=== PATIENT | female | born 1960 | race Caucasian/White ===

== ENCOUNTER 2017-03-12 16:16 | Inpatient (IN) | payer BC, MEDICAID ==
[2017-03-12] MEDS ORDERED: Enoxaparin Sodium 100 MG/ML SYRINGE ONE (17:05)
[2017-03-12 17:49] LABS: Troponin I 0.572 ng/mL (< 0.028)
[2017-03-12] MEDS ORDERED: NS 0.9% w/ 20 MEQ KCL 1,000 ML IV PRN (20:31)
[2017-03-12] MEDS ORDERED: Dextrose 5% in Water 1,000 ML IV PRN (20:31)
[2017-03-12] MEDS ORDERED: Dextrose 50% Abboject 50 ML SYRINGE SLOW IVP PRN (20:31)
[2017-03-12] MEDS ORDERED: Sodium Chloride 0.9% 1,000 ML IV SCH ×2 (20:45→22:00)
[2017-03-12] MEDS ORDERED: HumaLOG 300 UNITS/3 ML VIAL SC PRN (20:49)
[2017-03-12] MEDS ORDERED: Insulin Detemir 100 UNITS/ML 15 UNITS in Pre-Filled Syringe 1 EACH SC SCH (21:00)
[2017-03-12] MEDS ORDERED: Ondansetron HCl/PF 4 MG/2 ML Vial IVP PRN (21:16)
[2017-03-12] MEDS ORDERED: Ondansetron ODT 4 MG TAB SL PRN (21:16)
[2017-03-12 21:27] VITALS: BMI 48.5
[2017-03-12] MEDS ORDERED: traMADol HCl 50 MG TAB PO PRN (21:29)
[2017-03-12] MEDS ORDERED: Zolpidem Tartrate 5 MG TAB PO PRN (21:32)
[2017-03-12 21:34] LABS: Critical Call Chem Troponin I RESULT DECREASING; Troponin I 0.462 ng/mL (< 0.028)
[2017-03-12 22:26] LABS: Hemoglobin A1c 9.6 % (4.0-6.0)
[2017-03-12] MEDS: Carvedilol 6.25 MG TAB PO SCH (22:35)
[2017-03-12 22:37] LABS: Magnesium 1.7 mg/dL (1.6-2.6)
[2017-03-12 22:38] LABS: Anion Gap 15 mmol/L (10-20); BUN (Urea Nitrogen) 24 mg/dL (9.8-20.1); Calc. Creatinine Clearance 136 mL/min (70-130); Calcium 8.8 mg/dL (7.8-10.44); Carbon Dioxide 23 mmol/L (22-29); Chloride 99 mmol/L (98-107); Estimated GFR-MDRD 71; Glucose 312 mg/dL (70-105); Potassium 3.3 mmol/L (3.5-5.1); Sodium 134 mmol/L (136-145)
[2017-03-12] MEDS: Nitroglycerin 0.4 MG TAB (25 Tab Bottle) PO PRN ×2 (22:39→23:00)
[2017-03-12 22:54] LABS: Actual Bicarbonate (HCO3a) 24.1 mEq/L (22-26); Base Excess (BEa) 0.4 mEq/L (0 (+/-) 2.5); CO2 Tension 35.8 mmHg (35.0-45.0); Calcium, Ionized 1.1 mmol/L (1.12-1.30); Hemoglobin (Hb) 13.3 g/dL (12.0-16.0); O2 Tension (PaO2) 83.4 mmHg (80.0-100.0); pH, Arterial 7.45 (7.35-7.45)
[2017-03-12 22:55] LABS: Critical Call Chem Troponin I RESULT DECREASING; Troponin I 0.393 ng/mL (< 0.028)
[2017-03-12 22:56] LABS: Puncture Site RRA
[2017-03-12 23:22] LABS: Bilirubin Small (Negative); Blood, Urine Large (Negative); Clarity TURBID (Clear); Glucose, Urine (Dipstick) >=1000 mg/dL (Negative); Leukocyte Small (Negative); Nitrite Negative (Negative); Protein, Urine (Dipstick) 100 mg/dL (Neg-Trace); Specific Gravity, Urine 1.031 (1.002-1.036)
[2017-03-12 23:23] LABS: Bacteria/HPF 4+ HPF (None Seen); Squamous Epithelial 0-3 HPF (0-3); WBC/HPF 21-50 HPF (0-3)
[2017-03-12 23:25] LABS: Pathc Cast-AUWi Flag 2.99 (0-2.49)
[2017-03-12 23:39] LABS: Legionella Urinary Ag Negative (Negative)
[2017-03-13] MEDS ORDERED: Ketorolac Tromethamine 30 MG/ML VIAL IVP SCH (00:01)
[2017-03-13] MEDS: NS 0.9% w/ 20 MEQ KCL 1,000 ML/1,000 ML BAG IV SCH ×3 (00:12→08:09)
[2017-03-13] MEDS ORDERED: cefTRIAXone\\ROCEPHIN 2 GM VIAL IM SCH (00:30)
[2017-03-13] MEDS ORDERED: CEFTRIAXONE ROCEPHIN IM SCH (00:45)
[2017-03-13] MEDS ORDERED: PRE FILLED IM SCH (00:45)
[2017-03-13 02:36] LABS: Anion Gap 13 mmol/L (10-20); BUN (Urea Nitrogen) 28 mg/dL (9.8-20.1); Calc. Creatinine Clearance 126 mL/min (70-130); Calcium 8.8 mg/dL (7.8-10.44); Carbon Dioxide 25 mmol/L (22-29); Chloride 97 mmol/L (98-107); Estimated GFR-MDRD 65; Glucose 329 mg/dL (70-105); Potassium 3.3 mmol/L (3.5-5.1); Sodium 132 mmol/L (136-145)
[2017-03-13] MEDS ORDERED: cefTRIAXone\\ROCEPHIN 2 GM in Sodium Chloride 0.9% 100 ML IVPB SCH (03:30)
--- NOTE | 2017-03-13 06:06 | PDOC.FM ---
- Subjective Subjective: Feeling better this morning but overall weak and tired. Chest pain resolved. Improved with nitro. Troponins downtrending. EKG stable. - Objective MAR Reviewed: Yes Vital Signs & Weight: Vital Signs (12 hours) Temp Pulse Resp BP BP Pulse Ox 03/13/17 04:00 98.5 F 116 H 20 126/74 95 03/13/17 03:00 111 H 20 106/66 95 03/13/17 01:00 123 H 20 167/78 H 97 03/13/17 00:29 99.5 F 122 H 22 H 158/91 H 96 03/13/17 00:06 91 L 03/12/17 23:32 99.0 F 104 H 20 161/93 H 98 03/12/17 22:57 97 03/12/17 22:35 146/91 H 03/12/17 20:28 99.0 F 104 H 20 140/89 95 Weight Weight 112.718 kg I&O: 03/11/17 03/12/17 03/13/17 06:59 06:59 06:59 Intake Total 450 Output Total 1400 Balance -950 Result Diagrams: 03/13/17 05:50 03/13/17 08:53 EKG Reviewed by me: Yes <Ann Marie Baires - Last Filed: 03/13/17 11:08> - Objective Vital Signs & Weight: Vital Signs (12 hours) Temp Pulse Resp BP BP Pulse Ox 03/13/17 19:45 98.7 F 118 H 20 137/77 93 L 03/13/17 15:05 99.7 F H 106 H 20 147/83 H 96 03/13/17 11:25 98.9 F 112 H 24 H 137/74 95 03/13/17 11:00 97.6 F 112 H 20 137/74 93 L Weight Weight 112.718 kg I&O: 03/12/17 03/13/17 03/14/17 06:59 06:59 06:59 Intake Total 2150 3970 Output Total 1550 Balance 600 3970 Result Diagrams: 03/13/17 05:50 03/13/17 08:53 <Ketan Etienne - Last Filed: 03/13/17 21:04> Phys Exam - Physical Examination Constitutional: NAD HEENT: moist MMs, sclera anicteric clammy skin Respiratory: no wheezing, clear to auscultation bilateral Cardiovascular: RRR, no significant murmur intermittently tachycardic Gastrointestinal: soft, non-tender, no distention, positive bowel sounds Musculoskeletal: no edema, pulses present Neurological: non-focal, moves all 4 limbs Psychiatric: normal affect, A&O x 3 Skin: no rash, cap refill <2 seconds <Ann Marie Baires - Last Filed: 03/13/17 11:08> Dx/Plan (1) NSTEMI (non-ST elevated myocardial infarction) Code(s): I21.4 - NON-ST ELEVATION (NSTEMI) MYOCARDIAL INFARCTION Status: Acute (2) Diabetes Code(s): E11.9 - TYPE 2 DIABETES MELLITUS WITHOUT COMPLICATIONS Status: Acute (3) HTN (hypertension) Code(s): I10 - ESSENTIAL (PRIMARY) HYPERTENSION Status: Acute (4) HLD (hyperlipidemia) Code(s): E78.5 - HYPERLIPIDEMIA, UNSPECIFIED Status: Acute (5) Acute cystitis Code(s): N30.00 - ACUTE CYSTITIS WITHOUT HEMATURIA Status: Acute (6) Sepsis Code(s): A41.9 - SEPSIS, UNSPECIFIED ORGANISM Status: Acute - Plan Plan: 1. NSTEMI - Troponins downtrending - Pain atypical but relieved with nitro - On therapeutic lovenox - LBBB stable from old EKG - Appreciate Dr. Dickerson' assistance - NPO - Strong family history of CAD 2. Sepsis 2/2 UTI - Difficulty getting line - Midline IV started overnight - s/p Rocephin, continue x3-5 days - Will check CXR - BCx, UCx pending 3. URI - Flu negative OP and here but started on tamiflu, will complete course - CXR pending 4. Hypokalemia - Repleting IV 5. DM2 - ABG WNL - Weight based dose insulin started and aggressive SSI - NPO currently 6. HTN - Home meds PPX: Therapeutic lovenox <Ann Marie Baires - Last Filed: 03/13/17 11:08> Attending Addendum - Attending Addendum I personally evaluated the patient and discussed the management with Dr. Baires. I agree with and repeated the History, Examination, Assessment and Plan documented above with any addition or exceptions noted below. PCI unremarkable. RF management postoperatively. Consider TTE postoperatively. Leukocytosis with h/o flu and c/f postflu PNA. Rocephin per pulm, will add MRSA coverage if any worsening. Hypnatremia stable likely 2/2 above, trend. Lantus + SA. Goal 140-180 while in house. DVT/gi ppx. <Ketan Etienne - Last Filed: 03/13/17 21:04>
[2017-03-13 06:31] LABS: Anion Gap 15 mmol/L (10-20); BUN (Urea Nitrogen) 28 mg/dL (9.8-20.1); Calc. Creatinine Clearance 122 mL/min (70-130); Calcium 8.5 mg/dL (7.8-10.44); Carbon Dioxide 23 mmol/L (22-29); Chloride 97 mmol/L (98-107); Cholesterol 86 mg/dl (< 200 Desired); Estimated GFR-MDRD 63; Glucose 311 mg/dL (70-105); HDL Cholesterol Less than 8 mg/dL (>60 Neg Risk); Potassium 3.3 mmol/L (3.5-5.1); Sodium 132 mmol/L (136-145); Triglycerides 181 mg/dL (Less than 150)
[2017-03-13 06:34] LABS: Band 21 % (5-11); Cardiac Risk TEST NOT PERFORMED (Less than 4.5); Hemoglobin 12.2 g/dL (12.0-16.0); Lymphocytes 8 % (21-51); MDiff Complete? YES; Mean Corpuscular HGB CONC 32.8 g/dL (32.0-36.0); Mean Corpuscular Hemoglobin 29.1 pg (27.0-31.0); Mean Corpuscular Volume 88.8 fl (81.0-99.0); Mean Platelet Volume 9.2 fL (7.4-10.4); Metamyelocyte 2 % (0-0); Monocytes 3 % (0-10); Myelocyte 1 % (0-0); Neutrophil 64 % (42-75); PLT Morphology Comment Appears Decreased; Platelet Count 108 thou/uL (130-400); RBC Distribution Width 12.3 % (11.5-14.5); Reactive Lymphocytes 1 % (0-10); White Blood Cell (WBC) Count 28.3 thou/uL (4.8-10.8)
--- NOTE | 2017-03-13 07:26 | HP-2 ---
DATE OF ADMISSION: 03/12/2017 DATE OF SERVICE: 03/13/2017 CODE STATUS: FULL. PRIMARY CARE PHYSICIAN: Dr. Jones PRIMARY CARE PHYSICIAN: Dr. Emily Anna RESIDENT: Dr. Rizwana Moreno HISTORIAN: Patient. CHIEF COMPLAINT: Weakness/shortness of breath. HISTORY OF PRESENT ILLNESS: This is a 56-year-old female with a past medical history of type 2 diabetes, hypertension, hyperlipidemia and family history of MIs, presents with generalized weakness and flu-like illness for the past several days. The patient states that she started feeling bad on Thursday. She says that she had a cough that was productive with congestion as well as diffuse body aches. She states that she went to her primary care doctor. She was tested for the flu which was negative, but she does endorse being exposed to coworkers that did have the flu. She also describes chest pain that she says it is worse when she leans forward. It is also worse when she coughs. It is diffuse, achy and worse with movement and she endorses that it feels like muscle aches and pains. ER: The patient was transferred from an outside ER where she received 2 liters normal saline with 40 mEq of KCl, 10 units of NovoLog, 325 mg of aspirin, 100 mg of fentanyl. PAST MEDICAL HISTORY: 1. Type 2 diabetes. 2. Hypertension. 3. Obesity. PAST SURGICAL HISTORY: 1. Humeral fracture repair. 2. . ALLERGIES: No known drug allergies. MEDICATIONS: 1. Metformin 500 mg b.i.d. 2. Lisinopril/HCTZ 20/25 daily. 3. Simvastatin 20 mg daily. 4. Cyclobenzaprine 10 mg p.o. daily. 5. NovoLog 70/30 80 units b.i.d. 6. Carvedilol 6.25 mg b.i.d. 7. Tramadol 50 mg q.6h. p.r.n. 8. Lyrica 150 mg 3 times a daily. 9. Glimepiride 4 mg b.i.d. 10. Ibuprofen 800 mg t.i.d. SOCIAL HISTORY: Denies tobacco, alcohol and drug use. FAMILY HISTORY: Father had an KY at the age of 42. Brother has had 2 strokes and an KY and sister has had a stent placed. REVIEW OF SYSTEMS: GENERAL: Endorses fevers and chills. HEENT: Denies nasal congestion, vision changes, rhinorrhea, sore throat. RESPIRATORY: Endorses a wet cough. Endorses shortness of breath and congestion. CARDIOVASCULAR: Endorses chest pain, palpitations. GI: Denies nausea, endorses vomiting. GENITOURINARY: Denies incontinence or dysuria. SKIN: Denies rashes or lesions. MUSCULOSKELETAL: Denies pain, tenderness. NEUROLOGIC: Endorses weakness. Denies numbness or syncope. Endorses dizziness , lightheadedness. States that the room is spinning, endorses a headache. PSYCHIATRIC: Denies anxiety and depression. PHYSICAL EXAMINATION: VITAL SIGNS: Blood pressure 110/68, pulse of 94-111, respiratory rate 19-24, T- max 100.5, pulse ox 97% on 2 liters. Current weight 104 kilograms. GENERAL: Alert and oriented x4, no apparent distress, well-developed, obese, and appropriately interactive. EYES: PERRLA, EOMI. Conjunctivae within normal limits. Nasal mucosa and oropharynx within normal limits. NECK: Supple, no lymphadenopathy. CARDIAC: Regular rate and rhythm. No murmurs, rubs or gallops, 1+, pedal pulses bilaterally. RESPIRATORY: Normal effort, no retractions, clear to auscultation bilaterally. ABDOMEN: Soft, nontender. Hypoactive bowel sounds. EXTREMITIES: No clubbing, no cyanosis, no edema. MUSCULOSKELETAL: Structure within normal limits. NEUROLOGIC: No focal deficits. GCS of 15. PSYCHIATRIC: Appropriate. LABORATORY DATA: 1. CBC: 19.7, 13.1, 40.8, 128. 2. CMP: 132, 3.0, 94, 24, 21, 0.82, 61. 3. GFR 72. 4. AST, ALT, alkaline phosphatase 33, 23, 135. 5. Calcium, total protein, albumin, 0.7, 7.5, 3.0. 6. Total bilirubin 0.9. 7. Lactic acidosis 2.6, blood glucose 266. Beta hydroxybutyrate 258. 8. Troponin 0.743, 0.572, beta hydroxybutyrate 0.79. 9. Flu negative. EKG: Normal sinus rhythm at 97 with a left bundle branch block that is not new. No ST segment elevation. Anion gap of 14. ASSESSMENT AND PLAN: A 56-year-old female with past medical history of diabetes , hypertension and 1 week history of flu-like illness with shortness of breath and 2 elevated troponins, was admitted for acute coronary syndrome, probable non -ST-segment elevation myocardial infarction, hyperglycemia with uncontrolled diabetes and systemic inflammatory response syndrome criteria, unknown source. 1. Acute coronary syndrome, suspected [id number] elevation myocardial infarction. The patient was admitted to inpatient telemetry. We will trend her troponins. She was placed on therapeutic Lovenox. We will call Cardiology for a consult. Repeat an EKG if the chest pain returns, she is not having any typical chest pain. No ST segment elevations were evident on EKG. 2. Hyperglycemia with uncontrolled diabetes. We will check a hemoglobin A1c. We will also provide Accu-Cheks a.c. and at bedtime, sliding scale insulin. We also started the patient on insulin regimen that was a weight-based of 15 units of Levemir at night and 5 units of NovoLog before each meal. We will recheck a hemoglobin A1c. The patient initially had an elevated anion gap and a positive beta hydroxybutyrate with a blood sugar of 361, we ordered a VBG; however, the patient was really hard to stick and so then ordered an ABG and the patient was found to have a normal pH. We started the patient on a high rate of fluids with 20 of KCl added to it. We will serially check BMPs every 4 hours and make sure that the patient gets her night dose of insulin. We will monitor for the closing of her gap and recheck a beta hydroxybutyrate as well as recheck a lactic acid. She had a hemoglobin A1c of 11 in October in our clinic. We will recheck hemoglobin A1c. 3. Hypertension, controlled. We will resume her home medications. 4. Systemic inflammatory response syndrome criteria, unknown source, probable viral. We ordered a UA and culture as well as respiratory viral panel and a legionella urine. The patient presents like she has the flu, but was tested negative in the clinic. She says she did not get her flu shot this year. We started the patient on normal saline at 180 mL an hour. She also has in the lactic acidosis and so we will recheck that in 4-6 hours. We will also order an ABG to evaluate her acid base status. 5. DVT prophylaxis. The patient was placed on therapeutic Lovenox for non-ST- segment elevation myocardial infarction. 6. Lactic acidosis secondary to infection versus dehydration. We will recheck a lactic acid and continue NS @ 180 ml/hr DISPOSITION/LENGTH OF HOSPITAL STAY: 2-3 days. Symptomatic medications will be provided. The history and physical exam as well as management was discussed with Dr. Anna. KATYA
--- NOTE | 2017-03-13 07:53 | RAD ---
PORTABLE SEMIUPRIGHT FRONTAL CHEST RADIOGRAPH: DATE: 03/13/17. COMPARISON: 03/12/17. HISTORY: Sepsis, hypoxia. FINDINGS: There is stable prominence of the cardiac silhouette. There is postoperative hardware within the pro ximal right humerus. There is no pneumothorax, pleural fluid, focal consolidation, or alveolar edema . IMPRESSION: No acute findings. POS: YAZMIN
[2017-03-13] MEDS: Carvedilol 6.25 MG TAB PO SCH ×2 (08:07→21:04)
[2017-03-13] MEDS: HumaLOG 300 UNITS/3 ML VIAL SC SCH ×3 (08:07→17:01)
[2017-03-13] MEDS: Oseltamivir 75 MG CAP PO SCH ×2 (08:07→21:04)
[2017-03-13] MEDS ORDERED: Iopamidol 370 76% 100 ML VIAL ONE (08:08)
[2017-03-13] MEDS: Lisinopril/Hydrochlorothiazide 20/25 mg Tablet PO SCH (08:08)
[2017-03-13] MEDS ORDERED: Enoxaparin Sodium 120 MG/0.8 ML SYRINGE SC SCH (09:00)
[2017-03-13] MEDS ORDERED: Aspirin 325 MG TAB PO SCH (09:00)
[2017-03-13 09:23] LABS: Anion Gap 15 mmol/L (10-20); BUN (Urea Nitrogen) 30 mg/dL (9.8-20.1); Calc. Creatinine Clearance 107 mL/min (70-130); Calcium 8.6 mg/dL (7.8-10.44); Carbon Dioxide 23 mmol/L (22-29); Chloride 95 mmol/L (98-107); Estimated GFR-MDRD 54; Glucose 313 mg/dL (70-105); Potassium 3.8 mmol/L (3.5-5.1); Sodium 129 mmol/L (136-145)
[2017-03-13] MEDS ORDERED: Heparin 10,000 UNITS/1 ML VIAL ONE (11:23)
[2017-03-13] MEDS ORDERED: Nitroglycerin 100MG/250ML BOT 250 ML ONE (11:23)
[2017-03-13] MEDS: Cefepime 1 GM, Admixture Fee 1 EACH in Sterile Water 10 ML SLOW IVP SCH (11:28)
[2017-03-13] MEDS ORDERED: Verapamil 5 MG/2 ML VIAL ONE (11:30)
[2017-03-13] MEDS ORDERED: Communication Order-Pharmacy FS SCH (11:45)
[2017-03-13] MEDS ORDERED: Sodium Chloride 0.9% 1,000 ML IV SCH (11:45)
--- NOTE | 2017-03-13 11:51 | CON ---
DATE OF CONSULTATION: 03/13/2017 REASON FOR CONSULTATION: Elevated troponin and chest pain. HISTORY OF PRESENT ILLNESS: Ms. Altman is a 56-year-old woman with a history of diabetes, hypertensi on, hyperlipidemia who recently presented with chest pressure. The pressure was in the midsternal re gion. She also had left-sided pain. It was worse with cough. She has a chronic left bundle branch block. She has no previous history of underlying coronary disease. Her troponin was felt to be in t he indeterminate range. She also has had a recent URI and tested negative for flu. PAST MEDICAL HISTORY: As above including humeral fracture and . ALLERGIES: None. MEDICATIONS: Lisinopril/hydrochlorothiazide, Zocor, cyclobenzaprine, NovoLog, carvedilol, tramadol, glyburide, ibuprofen, metformin. FAMILY HISTORY: Positive for CAD with father having an DE at the age of 42 and brother having 2 stro kes and DE. REVIEW OF SYSTEMS: Ten point review of systems is reviewed and is as above, otherwise negative. PHYSICAL EXAMINATION: GENERAL: She is obese. VITAL SIGNS: Blood pressure 137/74, pulse 99, respirations 20. NEUROLOGIC: The patient is alert and oriented times 3 with no focal neurologic deficits. HEENT: Sclerae without icterus. Mouth has moist mucous membranes with normal pallor. NECK: No JVD. Carotid upstroke brisk. No bruits bilaterally. LUNGS: Clear to auscultation with unlabored respirations. BACK: No scoliosis or kyphosis. CARDIAC: Regular rate and rhythm with normal S1 and S2. No S3 or S4 noted. No significant rubs, murmurs, thrills, or gallops noted throughout the precordium. PMI is not displaced. There is no parasternal heave. ABDOMEN: Soft, nontender, nondistended. No peritoneal signs present. No hepatosplenomegaly. No abnormal striae. EXTREMITIES: 2+ femoral and 2+ dorsalis pedis pulses. No cyanosis, clubbing, or edema. SKIN: No gross abnormalities. PERTINENT LABORATORY DATA AND IMAGING DATA: Hemoglobin 12.2, creatinine 1.06, sodium 129, triglyceri gema 181, troponin 0.572. EKG shows left bundle branch block. IMPRESSION: 1. Chest pressure. 2. Elevated troponin. 3. Left bundle branch block. 4. Recent upper respiratory infection. RECOMMENDATIONS: It is difficult to say whether the patient's symptoms are due to unstable angina ve rsus recent URI with demand ischemia. She has had a previous left bundle branch block. Given her ri sk factors, family history, elevated troponin and left bundle branch block, would recommend coronary angiography with possible PCI. I discussed the procedure in full detail with Ms. Altman. The risks included but not limited to the following: , stroke, DE, need for emergency surgery, loss of limb, bleeding, and infection, as well as a re action to the dye causing kidney failure and needing long-term dialysis. Other risks include acute s tent thrombosis and restenosis, vessel dissection, perforation, need for emergency surgery in additio n to distal embolization causing chronic foot discomfort as well as amputation. All questions were a nswered. I have discussed drug-coated versus nondrug coated stent placement. There are no contraind ications and will proceed if needed. Further recommendations depending on the above.
[2017-03-13] MEDS ORDERED: Fentanyl 100 MCG/2 ML VIAL ONE (12:23)
[2017-03-13] MEDS ORDERED: Midazolam HCl 2 mg/2 ml Vial ONE (12:24)
[2017-03-13] MEDS ORDERED: Acetaminophen/Codeine 30-300mg Tablet PO PRN (12:41)
[2017-03-13] MEDS ORDERED: Nitroglycerin 0.4 MG TAB (25 Tab Bottle) SL PRN (12:41)
[2017-03-13] MEDS ORDERED: traMADol HCl 50 MG TAB PO PRN (12:41)
[2017-03-13] MEDS ORDERED: Sodium Chloride 0.9% 200 ML IV SCH (12:45)
[2017-03-13] MEDS: Sodium Chloride 0.9% 1,000 ML IV SCH ×2 (12:52→20:37)
--- NOTE | 2017-03-13 15:29 | CON ---
DATE OF CONSULTATION: 03/13/2017 REASON FOR CONSULTATION: MICU, sepsis. HISTORY OF PRESENT ILLNESS: A 56-year-old obese female from [place] who presented with co ugh, shortness of breath, congestion and body aches. Flu was negative. She was started on Tamiflu because of coworkers, apparently had the flu-like symptoms. She then was found to have elevated troponin. CK-MB was elevated at 453. Her troponin was 0.93 and 0.46. She is denying any chest pain. She is restless. She is immunocompromised. SOCIAL HISTORY: Nonsmoker. No alcohol. PAST MEDICAL HISTORY: Diabetes and hypertension, chronic. PAST SURGICAL HISTORY: Included and fractured hernia. MEDICATIONS: Ibuprofen 800, Amaryl one twice a day, metformin 1250 twice a day, Coreg one tablet twi ce a day, tramadol, simvastatin 20, lisinopril and insulin 18 units. REVIEW OF SYSTEMS: Otherwise, 10-point negative. PHYSICAL EXAMINATION: VITAL SIGNS: Blood pressure 118/76, sats are 94% on 4 liters and temperature 98. CHEST: With decreased breath sounds. No wheezing. CARDIAC: Normal S1 and S2. No gallops. ABDOMEN: Soft. LABORATORY DATA: White count of 28,000, hemoglobin and hematocrit 12 and 37, platelet count 108 low, 64 segs, 21 bands, 2 metamyelocytes, 1 myelocyte and 8 lymphocytes. Creatinine is normal, BUN 30, a nd sodium 126. IMAGING DATA: Chest x-ray shows cardiomegaly, questionable left retrocardiac density. IMPRESSION: 1. Elevated troponin, rule out coronary artery disease. 2. Obesity with diabetes. 3. Hypertension. 4. Marked leukocytosis with marked left shift. I doubt this is due to influenza. PLAN: We will consider reinitiating broad-spectrum antibiotics until cultures are back. May continu e Tamiflu as prescribed. Supportive care. We will follow while in the MICU.
[2017-03-13] MEDS: Ketorolac Tromethamine 30 MG/ML VIAL IVP PRN (19:55)
[2017-03-13] MEDS ORDERED: Ondansetron HCl/PF 4 MG/2 ML Vial IVP PRN (20:06)
[2017-03-13] MEDS: Insulin Detemir 100 UNITS/ML 15 UNITS in Pre-Filled Syringe 1 EACH SC SCH (20:39)
[2017-03-13] MEDS: Acetaminophen/Codeine 30-300mg Tablet PO PRN (20:42)
[2017-03-13] MEDS ORDERED: Cefepime 1 GM in Sodium Chloride 0.9% 100 ML IVPB SCH (21:00)
--- NOTE | 2017-03-13 23:25 | PDOC.EVN ---
Event Note - Event Note Event Note: Paged by Nursing staff at approximately 2000 hours to inform residents patient was tachycardic in the 120s to 130s. Reviewed telemetry which showed sinus tachycardia vs a-flutter. 12 lead EKG was ordered which was inconclusive for sinus tachycardia vs. A-flutter. Was given IV diltiazem 20 mg which lowered heart rate into 90s. Repeat EKG showed SR with PVCs. Rate in upper 90s. Will continue current treatment at this time. Sinus tachycardia likely due to acute illness. Will consider fluid bolus if sinus tachycardia returns. Case discussed with Dr. Etienne who was in agreement.
[2017-03-14] MEDS: Cefepime 1 GM, Admixture Fee 1 EACH in Sterile Water 10 ML SLOW IVP SCH ×2 (00:06→11:00)
[2017-03-14] MEDS ORDERED: Sodium Chloride 0.9% 500 ML IV SCH (01:15)
[2017-03-14] MEDS: Acetaminophen 325 MG TAB PO PRN (02:42)
[2017-03-14] MEDS: Piperacillin/Tazobactam 3.375 GM in Sodium Chloride 0.9% 100 ML IVPB SCH ×3 (05:12→18:56)
[2017-03-14] MEDS: HumaLOG 300 UNITS/3 ML VIAL SC SCH ×3 (05:22→17:25)
--- NOTE | 2017-03-14 07:12 | PDOC.FM ---
- Subjective Subjective: Patient reports that she is feeling better this AM. Denies any chest pain, SOB, palpitations, N/V, dysuria, rhinorrhea. - Objective MAR Reviewed: Yes Vital Signs & Weight: Vital Signs (12 hours) Temp Pulse Resp BP BP Pulse Ox 03/14/17 04:44 100 03/14/17 03:59 98.4 F 85 18 125/80 100 03/14/17 00:15 96 03/13/17 23:59 98.4 F 96 18 101/57 L 96 03/13/17 21:20 98.9 F 107 H 28 H 96 03/13/17 21:04 150/83 H 03/13/17 20:50 108 H 32 H 142/77 H 95 03/13/17 20:02 99.7 F H 126 H 32 H 164/94 H 93 L 03/13/17 19:55 98.9 F 107 H 28 H 95 03/13/17 19:45 98.7 F 118 H 20 137/77 93 L Weight Weight 112.718 kg I&O: 03/13/17 03/14/17 03/15/17 06:59 06:59 06:59 Intake Total 2150 6543 Output Total 1550 550 Balance 600 5993 Result Diagrams: 03/13/17 05:50 03/13/17 08:53 <Alis Newell - Last Filed: 03/14/17 07:13> - Objective Vital Signs & Weight: Vital Signs (12 hours) Temp Pulse Resp BP BP Pulse Ox 03/14/17 15:58 98.5 F 97 18 139/85 93 L 03/14/17 11:48 99.2 F 104 H 16 128/90 100 03/14/17 09:44 97 03/14/17 09:09 96 03/14/17 09:08 150/83 H 03/14/17 08:00 98.6 F 96 26 H 96 03/14/17 07:22 98.6 F 96 16 129/71 97 Weight Weight 112.718 kg I&O: 03/13/17 03/14/17 03/15/17 06:59 06:59 06:59 Intake Total 2150 6543 900 Output Total 1550 550 Balance 600 5993 900 Result Diagrams: 03/14/17 07:20 03/14/17 09:43 <Ketan Etienne - Last Filed: 03/14/17 17:00> Phys Exam - Physical Examination Constitutional: NAD HEENT: moist MMs Respiratory: no wheezing, no rales, no rhonchi, clear to auscultation bilateral Cardiovascular: RRR, no significant murmur, no rub Gastrointestinal: soft, non-tender, no distention, positive bowel sounds Musculoskeletal: no edema, pulses present Neurological: non-focal, moves all 4 limbs Psychiatric: normal affect, A&O x 3 <Alis Newell - Last Filed: 03/14/17 07:13> Dx/Plan (1) Sepsis Code(s): A41.9 - SEPSIS, UNSPECIFIED ORGANISM Status: Acute QualifierTitle: Sepsis type: sepsis due to unspecified organism Qualified Code(s): A41.9 - Sepsis, unspecified organism Plan: Patient presented in sepsis and was found to have UTI, but urine cx was negative due to being drawn after abx were started, and bacteremia with gram negative coccobacilli She has been tachycardic overnight, but otherwise stable. -Cefepime day 2, Zosyn day 1, s/p Rocephin -NS @ 125 -Bcx final results with sensitivities (2) Bacteremia due to Gram-negative bacteria Code(s): R78.81 - BACTEREMIA Status: Acute Plan: gram negative coccobacilli in 2/2 cx She has been tachycardic overnight, but otherwise stable. -Cefepime day 2, Zosyn day 1, s/p Rocephin -NS @ 125 -Bcx final results with sensitivities (3) Demand ischemia Code(s): I24.8 - OTHER FORMS OF ACUTE ISCHEMIC HEART DISEASE Status: Acute Plan: Trop elevated initially to 0.7, have since downtrended s/p cath on 03/13 that showed insignificant CAD Patient asymptomatic currently -Dr. Dickerson with Cardiology has been consulted, appreciate recs (4) URI (upper respiratory infection) Code(s): J06.9 - ACUTE UPPER RESPIRATORY INFECTION, UNSPECIFIED Status: Acute QualifierTitle: URI type: unspecified viral URI Qualified Code(s): J06.9 - Acute upper respiratory infection, unspecified; B97.89 - Other viral agents as the cause of diseases classified elsewhere; B97.89 - Other viral agents as the cause of diseases classified elsewhere Plan: Patient has been treated with tamiflu for suspected influenza infection due to exposure, although her flu test was negative -continue course of tamiflu -droplet precautions (5) Acute cystitis Code(s): N30.00 - ACUTE CYSTITIS WITHOUT HEMATURIA Status: Acute QualifierTitle: Hematuria presence: without hematuria Qualified Code(s): N30.00 - Acute cystitis without hematuria Plan: Acute cystitis with unknown bacteria -Will cover with cefepime -NS @ 125 (6) HTN (hypertension) Code(s): I10 - ESSENTIAL (PRIMARY) HYPERTENSION Status: Acute QualifierTitle: Hypertension type: essential hypertension Qualified Code( s): I10 - Essential (primary) hypertension Plan: Cont home meds (7) Diabetes Code(s): E11.9 - TYPE 2 DIABETES MELLITUS WITHOUT COMPLICATIONS Status: Acute QualifierTitle: Diabetes mellitus type: type 2 Diabetes mellitus complication status: with unspecified complications Diabetes mellitus exterminator helper insulin use: with exterminator helper use Qualified Code(s): E11.8 - Type 2 diabetes mellitus with unspecified complications; Z79.4 - senior living (current) use of insulin; Z79.4 - senior living (current) use of insulin; 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 Estrada and Osiris. I agree with and repeated the History, Examination, Assessment and Plan documented above with any addition or exceptions noted below. Negative cath yesterday. No cp this morning, is just tired and wanting to go home. Exam relatively unremarkable Sepsis 2/2 respiratory vs urine source with GN CB in BC x 2, with thrombocytopenia, improving leukocytosis and clinical picture. Await cultures, continue broad spectrum coverage. NSTEMI likely 2/2 sepsis with negative cath. Will order TTE, may have sepsis induced cardiac dysfunction. DM. Increase control today. Heart healthy, low CHO diet. GI and DVT ppx. <Ketan Etienne - Last Filed: 03/14/17 17:00>
[2017-03-14 08:03] LABS: Band 4 % (5-11); Hemoglobin 12.7 g/dL (12.0-16.0); Lymphocytes 7 % (21-51); MDiff Complete? YES; Mean Corpuscular HGB CONC 32.4 g/dL (32.0-36.0); Mean Corpuscular Hemoglobin 28.7 pg (27.0-31.0); Mean Corpuscular Volume 88.6 fl (81.0-99.0); Mean Platelet Volume 10.9 fL (7.4-10.4); Metamyelocyte 1 % (0-0); Monocytes 1 % (0-10); Neutrophil 87 % (42-75); PLT Morphology Comment Appears Decreased; Platelet Count 107 thou/uL (130-400); RBC Distribution Width 12.8 % (11.5-14.5); Red Blood Cell (RBC) Count 4.42 mill/uL (4.20-5.40); White Blood Cell (WBC) Count 20.1 thou/uL (4.8-10.8)
[2017-03-14] MEDS: Carvedilol 6.25 MG TAB PO SCH ×3 (09:08→21:13)
[2017-03-14] MEDS: Enoxaparin Sodium 40 MG/0.4 ML SYRINGE SC SCH (09:09)
[2017-03-14] MEDS: Lisinopril/Hydrochlorothiazide 20/25 mg Tablet PO SCH (09:09)
[2017-03-14] MEDS: Insulin Detemir 100 UNITS/ML 15 UNITS in Pre-Filled Syringe 1 EACH SC SCH (09:09)
[2017-03-14] MEDS: Sodium Chloride 0.9% 1,000 ML IV SCH ×2 (09:38→18:56)
[2017-03-14 10:06] LABS: Anion Gap 14 mmol/L (10-20); BUN (Urea Nitrogen) 26 mg/dL (9.8-20.1); Calc. Creatinine Clearance 155 mL/min (70-130); Calcium 8.9 mg/dL (7.8-10.44); Carbon Dioxide 21 mmol/L (22-29); Chloride 100 mmol/L (98-107); Estimated GFR-MDRD 83; Glucose 283 mg/dL (70-105); Potassium 4.3 mmol/L (3.5-5.1); Sodium 131 mmol/L (136-145)
[2017-03-14] MEDS: Ketorolac Tromethamine 30 MG/ML VIAL IVP PRN (12:02)
--- NOTE | 2017-03-14 13:11 | PRG ---
DATE OF SERVICE: 03/14/2017 SUBJECTIVE: Awake, alert, responsive, appears to be less short of breath. OBJECTIVE: VITAL SIGNS: Blood pressure is 150/83, temperature 98, saturations 97 on 3 liters, pulse was still e levated yesterday, now is better at 96. CHEST: Chest reveals decreased breath sounds, no wheezing. CARDIAC: Normal S1, S2. No gallops. ABDOMEN: Soft. No masses. LABORATORY: White count 20,000, H&H 12 and 39, platelet count is 173. Electrolytes are normal. Cul tures are negative. IMPRESSION: Febrile illness, marked leukocytosis with left shift. PLAN: Continue broad-spectrum antibiotics. If cultures come back negative, we will deescalate.
[2017-03-14] MEDS: Acetaminophen/Codeine 30-300mg Tablet PO PRN (21:13)
[2017-03-14] MEDS: Atorvastatin Calcium 40 MG TAB PO SCH (21:13)
[2017-03-14] MEDS: Insulin Detemir 100 UNITS/ML 30 UNITS in Pre-Filled Syringe 1 EACH SC SCH (21:14)
[2017-03-15] MEDS: Cefepime 1 GM, Admixture Fee 1 EACH in Sterile Water 10 ML SLOW IVP SCH ×2 (00:43→11:30)
[2017-03-15] MEDS: Piperacillin/Tazobactam 3.375 GM in Sodium Chloride 0.9% 100 ML IVPB SCH ×3 (00:43→11:59)
[2017-03-15] MEDS: Sodium Chloride 0.9% 1,000 ML IV SCH ×2 (04:54→07:39)
[2017-03-15 05:16] LABS: Anion Gap 12 mmol/L (10-20); BUN (Urea Nitrogen) 17 mg/dL (9.8-20.1); Calc. Creatinine Clearance 174 mL/min (70-130); Calcium 8.4 mg/dL (7.8-10.44); Carbon Dioxide 26 mmol/L (22-29); Chloride 96 mmol/L (98-107); Estimated GFR-MDRD Greater than 90; Glucose 187 mg/dL (70-105); Potassium 3.2 mmol/L (3.5-5.1); Sodium 131 mmol/L (136-145)
[2017-03-15 05:29] LABS: Band 12 % (5-11); Hemoglobin 12.3 g/dL (12.0-16.0); Lymphocytes 9 % (21-51); MDiff Complete? YES; Mean Corpuscular HGB CONC 32.5 g/dL (32.0-36.0); Mean Corpuscular Hemoglobin 28.9 pg (27.0-31.0); Mean Corpuscular Volume 88.7 fl (81.0-99.0); Mean Platelet Volume 10.3 fL (7.4-10.4); Monocytes 4 % (0-10); Neutrophil 75 % (42-75); PLT Morphology Comment Appears Adequate; Platelet Count 143 thou/uL (130-400); RBC Distribution Width 12.6 % (11.5-14.5); RBC Morphology Normal; Red Blood Cell (RBC) Count 4.27 mill/uL (4.20-5.40); White Blood Cell (WBC) Count 17.5 thou/uL (4.8-10.8)
[2017-03-15] MEDS ORDERED: Potassium Chloride 20 MEQ TAB PO SCH (06:00)
[2017-03-15] MEDS: Acetaminophen/Codeine 30-300mg Tablet PO PRN ×2 (07:14→17:22)
--- NOTE | 2017-03-15 07:19 | PDOC.FM ---
- Subjective Subjective: The patient reports that she is not feeling well this AM. She gets coughing fits. She reports that her breathing is doing fine. Denies body aches, chest pain. Reports that she is eating well. She has not been ambulating much. - Objective MAR Reviewed: Yes Vital Signs & Weight: Vital Signs (12 hours) Temp Pulse Resp BP BP Pulse Ox 03/15/17 07:14 98.4 F 101 H 19 161/73 H 98 03/15/17 03:53 97.9 F 93 20 146/71 H 93 L 03/14/17 23:52 98.3 F 88 18 137/78 97 03/14/17 21:13 143/84 H 03/14/17 19:51 99.7 F H 99 22 H 143/84 H 100 03/14/17 19:50 99.7 F H 99 22 H 100 Weight Weight 123.831 kg I&O: 03/14/17 03/15/17 03/16/17 06:59 06:59 06:59 Intake Total 6543 900 Output Total 550 1100 Balance 5993 -200 Result Diagrams: 03/15/17 04:42 03/15/17 04:42 <Alis Newell - Last Filed: 03/15/17 07:17> - Objective Vital Signs & Weight: Vital Signs (12 hours) Temp Pulse Resp BP BP Pulse Ox 03/15/17 08:27 91 132/53 L 03/15/17 08:25 98.1 F 91 18 97 03/15/17 07:14 98.4 F 101 H 19 161/73 H 98 03/15/17 03:53 97.9 F 93 20 146/71 H 93 L Weight Weight 123.831 kg I&O: 03/14/17 03/15/17 03/16/17 06:59 06:59 06:59 Intake Total 6543 2900 Output Total 550 2600 300 Balance 5993 300 -300 Result Diagrams: 03/15/17 04:42 03/15/17 04:42 <Ketan Etienne - Last Filed: 03/15/17 12:12> Phys Exam - Physical Examination Constitutional: NAD HEENT: moist MMs Respiratory: no rales, no rhonchi, wheezing present Cardiovascular: RRR, no significant murmur, no rub Gastrointestinal: soft, non-tender, no distention, positive bowel sounds Musculoskeletal: pulses present, edema present (1+ pitting edema) Neurological: non-focal, moves all 4 limbs Psychiatric: normal affect, A&O x 3 <Alis Newell - Last Filed: 03/15/17 07:17> Dx/Plan (1) Sepsis Code(s): A41.9 - SEPSIS, UNSPECIFIED ORGANISM Status: Acute QualifierTitle: Sepsis type: sepsis due to unspecified organism Qualified Code(s): A41.9 - Sepsis, unspecified organism Plan: Patient presented in sepsis and was found to have UTI, urine culture grew E. coli and patient also had bacteremia with gram negative coccobacilli, still pending specific organism s/p fluid resuscitation, is now stabilized -Cefepime day 3, Zosyn day 2, s/p Rocephin -Bcx final results with sensitivities (2) Bacteremia due to Gram-negative bacteria Code(s): R78.81 - BACTEREMIA Status: Acute Plan: gram negative coccobacilli in 2/2 cx . -Cefepime day 3, Zosyn day 2, s/p Rocephin -Bcx final results with sensitivities (3) Demand ischemia Code(s): I24.8 - OTHER FORMS OF ACUTE ISCHEMIC HEART DISEASE Status: Acute Plan: NSTEMI likely 2/2 demand ischemia from sepsis. Trop elevated initially to 0.7, have since downtrended s/p cath on 03/13 that showed insignificant CAD Patient asymptomatic currently -Dr. Dickerson with Cardiology has been consulted, appreciate recs -started patient on atorvastatin (4) URI (upper respiratory infection) Code(s): J06.9 - ACUTE UPPER RESPIRATORY INFECTION, UNSPECIFIED Status: Acute QualifierTitle: URI type: unspecified viral URI Qualified Code(s): J06.9 - Acute upper respiratory infection, unspecified; B97.89 - Other viral agents as the cause of diseases classified elsewhere; B97.89 - Other viral agents as the cause of diseases classified elsewhere Plan: Patient has been treated with tamiflu for suspected influenza infection due to exposure, although her flu test was negative -Tamiflu course completed -symptomatic treatment (5) Acute cystitis Code(s): N30.00 - ACUTE CYSTITIS WITHOUT HEMATURIA Status: Acute QualifierTitle: Hematuria presence: without hematuria Qualified Code(s): N30.00 - Acute cystitis without hematuria Plan: Acute cystitis 2/2 E. coli -Will cover with cefepime (6) HTN (hypertension) Code(s): I10 - ESSENTIAL (PRIMARY) HYPERTENSION Status: Acute QualifierTitle: Hypertension type: essential hypertension Qualified Code( s): I10 - Essential (primary) hypertension Plan: Cont home meds (7) Diabetes Code(s): E11.9 - TYPE 2 DIABETES MELLITUS WITHOUT COMPLICATIONS Status: Acute QualifierTitle: Diabetes mellitus type: type 2 Diabetes mellitus complication status: with unspecified complications Diabetes mellitus security systems engineer insulin use: with security systems engineer use Qualified Code(s): E11.8 - Type 2 diabetes mellitus with unspecified complications; Z79.4 - MCC (current) use of insulin; Z79.4 - operator (current) use of insulin; Z79.4 - M[facility] ( current) use of insulin; Z79.4 - MCC (current) use of insulin Plan: Levemir -SSI -Accuchecks (8) Hypokalemia Code(s): E87.6 - HYPOKALEMIA Status: Acute Plan: Will replete and monitor (9) CHF (congestive heart failure) Code(s): I50.9 - HEART FAILURE, UNSPECIFIED Status: Acute QualifierTitle: Congestive heart failure type: combined Congestive heart failure chronicity: unspecified congestive heart failure chronicity Qualified Code(s): I50.40 - Unspecified combined systolic (congestive) and diastolic ( congestive) heart failure Plan: CHF, EF 30-35%, diastolic component continue ACEi, BB -fluid restrict -strict I/O's -daily weights <Alis Newell - Last Filed: 03/15/17 07:17> Attending Addendum - Attending Addendum I personally evaluated the patient and discussed the management with Dr. Newell. I agree with and repeated the History, Examination, Assessment and Plan documented above with any addition or exceptions noted below. Severe sepsis with NSTEMI and acute hypoxic resp failure, improving, continue antimicrobials and await outside culture results. Risk factor management for NSTEMI. Improving glycemic control. PT/OT and d/c FC as soon as able. New dx of heart failure and will place on appropriate meds, appreciate cards input. DVT/gi ppx. <Ketan Etienne - Last Filed: 03/15/17 12:12>
[2017-03-15] MEDS: Carvedilol 6.25 MG TAB PO SCH ×3 (08:27→20:51)
[2017-03-15] MEDS: Lisinopril/Hydrochlorothiazide 20/25 mg Tablet PO SCH (08:27)
[2017-03-15] MEDS: Enoxaparin Sodium 40 MG/0.4 ML SYRINGE SC SCH (08:28)
[2017-03-15] MEDS: Insulin Detemir 100 UNITS/ML 30 UNITS in Pre-Filled Syringe 1 EACH SC SCH ×2 (09:10→20:51)
[2017-03-15] MEDS: HumaLOG 300 UNITS/3 ML VIAL SC SCH ×3 (09:10→18:58)
--- NOTE | 2017-03-15 15:15 | PRG ---
DATE OF SERVICE: 03/15/2017 SUBJECTIVE: Ms. Altman is doing well. She feels much better today. OBJECTIVE: VITAL SIGNS: Blood pressure 132/53, pulse 91, temperature 98.1. LUNGS: Clear to rhonchi, rales bilaterally. CARDIAC: Regular rate and rhythm. ABDOMEN: Soft, nontender, nondistended. EXTREMITIES: No edema. IMPRESSION: 1. Nonischemic cardiomyopathy. 2. Recent viral infection. RECOMMENDATIONS: 1. LifeVest. 2. Continue to aspirin, atorvastatin and carvedilol in addition to NITESH inhibitor therapy. 3. Respiratory support.
--- NOTE | 2017-03-15 19:11 | PRG ---
DATE OF SERVICE: 03/15/2017 SUBJECTIVE: Her EF was 35%. Today, she is feeling better. She appear to be less encephalopathic. OBJECTIVE: VITAL SIGNS: Blood pressure 130/53, sats 97%, temperature 98. I's and O's have been good, 2900 in a nd 2600 out. CHEST: Chest reveals bilateral crackles. CARDIAC: Normal S1, S2. LABORATORY DATA: White count is down to 70,000, H and H 12 and 37, platelet count is 143. She has g ot a big left shift with 12 bands. Electrolytes are normal. Urine is growing E. coli. IMPRESSION: Sepsis, urinary tract infection, cardiomyopathy, diabetes, and morbid obesity. I may consider discontinuing the Zosyn at this stage. Continue Maxipime, PT and supportive care, car diac care as per Cardiology. We will follow.
[2017-03-15] MEDS: Atorvastatin Calcium 40 MG TAB PO SCH (20:51)
[2017-03-16] MEDS: Cefepime 1 GM, Admixture Fee 1 EACH in Sterile Water 10 ML SLOW IVP SCH (00:48)
[2017-03-16] MEDS: Acetaminophen/Codeine 30-300mg Tablet PO PRN ×2 (03:49→10:53)
[2017-03-16 04:52] LABS: #Basophils 0.1 thou/uL (0.0-0.2); #Eosinphils 0.1 thou/uL (0.0-0.7); #Lymphocytes 2.3 thou/uL (1.20-3.40); #Monocytes 1.2 thou/uL (0.11-0.59); #Neutrophils 12.1 thou/uL (1.40-6.50); %Basophils 0.4 % (0.0-1.0); %Eosinophils 0.5 % (0.0-10.0); %Lymphocytes 14.7 % (21.0-51.0); %Monocytes 7.6 % (0.0-10.0); %Neutrophils 76.8 % (42.0-75.0); Hemoglobin 12.1 g/dL (12.0-16.0); Mean Corpuscular Hemoglobin 29.2 pg (27.0-31.0); Mean Corpuscular Volume 88.3 fl (81.0-99.0); Mean Platelet Volume 9.1 fL (7.4-10.4); Platelet Count 201 thou/uL (130-400); RBC Distribution Width 12.5 % (11.5-14.5); Red Blood Cell (RBC) Count 4.15 mill/uL (4.20-5.40); White Blood Cell (WBC) Count 15.8 thou/uL (4.8-10.8)
[2017-03-16 05:08] LABS: Anion Gap 11 mmol/L (10-20); BUN (Urea Nitrogen) 11 mg/dL (9.8-20.1); Calc. Creatinine Clearance 235 mL/min (70-130); Calcium 8.2 mg/dL (7.8-10.44); Carbon Dioxide 30 mmol/L (22-29); Chloride 93 mmol/L (98-107); Estimated GFR-MDRD Greater than 90; Glucose 122 mg/dL (70-105); Sodium 131 mmol/L (136-145)
[2017-03-16 05:13] LABS: Potassium 2.6 mmol/L (3.5-5.1)
[2017-03-16] MEDS ORDERED: Potassium Chloride 20 MEQ TAB PO SCH ×2 (05:30→14:00)
--- NOTE | 2017-03-16 08:48 | CON ---
DATE OF SERVICE: 03/16/2017 SUBJECTIVE: Ms. Altman continues to improve. She states she is breathing better. Her ambulation is also improving, although slow. PHYSICAL EXAMINATION: VITAL SIGNS: Blood pressure 143/82, pulse 98, temperature 98.6. LUNGS: Decreased rhonchi, rales bilaterally. HEART: Regular rate and rhythm. ABDOMEN: Soft, nontender, nondistended. EXTREMITIES: No edema. PERTINENT LABORATORY DATA: White blood cell count 15.8. IMPRESSION: 1. Nonischemic cardiomyopathy. 2. Viral illness. RECOMMENDATIONS: LifeVest has been placed. She is currently on beta chucky therapy, NITESH inhibitor therapy in addition to hydrochlorothiazide. Heart rate and blood pressure appears stable. We will i ncrease Coreg to 12.5 one p.o. b.i.d. Would recommend continued titration of beta chucky therapy an d NITESH inhibitor therapy as an outpatient.
--- NOTE | 2017-03-16 09:09 | PDOC.FM ---
- Subjective Subjective: pt reports she is feeling better this am. Denies sob, cough. Does complain of some left sided neck/shoulder pain that has been going on for quite some time according to her. It is worse with shoulder movement and tender to palpation, non radiating and not associated with sob, chest pressure, diaphoresis. Otherwise she states she is hoping to go home today. Additionally reports rt sided ear pressure and whooshing sound. - Objective Vital Signs & Weight: Vital Signs (12 hours) Temp Pulse Resp BP Pulse Ox 03/16/17 04:00 98.6 F 98 18 143/82 H 95 Weight Weight 119.431 kg I&O: 03/15/17 03/16/17 03/17/17 06:59 06:59 06:59 Intake Total 2900 1130 Output Total 2600 1900 Balance 300 -770 Result Diagrams: 03/16/17 04:26 03/16/17 04:26 <Moe Shah - Last Filed: 03/16/17 09:08> - Objective Vital Signs & Weight: Vital Signs (12 hours) Temp Pulse Pulse Pulse Resp BP BP 03/16/17 11:02 98.7 F 91 18 03/16/17 10:57 98 03/16/17 10:50 98.7 F 91 18 03/16/17 09:50 87 97 164/93 H 170/101 H 03/16/17 09:08 84 87 142/84 H 168/99 H 03/16/17 04:00 98.6 F 98 18 BP BP Pulse Ox 03/16/17 11:02 140/73 97 03/16/17 10:57 03/16/17 10:50 96 03/16/17 09:50 03/16/17 09:08 03/16/17 04:00 143/82 H 95 Weight Weight 119.431 kg I&O: 03/15/17 03/16/17 03/17/17 06:59 06:59 06:59 Intake Total 2900 1130 Output Total 2600 1900 Balance 300 -770 Result Diagrams: 03/16/17 04:26 03/16/17 04:26 <Roselia Jesus - Last Filed: 03/16/17 14:08> Phys Exam - Physical Examination Constitutional: NAD HEENT: PERRLA, moist MMs, sclera anicteric Respiratory: no wheezing, no rales, no rhonchi, clear to auscultation bilateral Cardiovascular: RRR, no significant murmur, no rub Gastrointestinal: soft, non-tender, no distention, positive bowel sounds Musculoskeletal: pulses present, edema present ttp left trap/supraclavicular Neurological: non-focal, moves all 4 limbs <Moe Shah - Last Filed: 03/16/17 09:08> Dx/Plan (1) Otitis Code(s): H66.90 - OTITIS MEDIA, UNSPECIFIED, UNSPECIFIED EAR Status: Acute QualifierTitle: Laterality: right Qualified Code(s): H66.91 - Otitis media, unspecified, right ear (2) Bacteremia due to Gram-negative bacteria Code(s): R78.81 - BACTEREMIA Status: Acute (3) CHF (congestive heart failure) Code(s): I50.9 - HEART FAILURE, UNSPECIFIED Status: Acute QualifierTitle: Congestive heart failure type: combined Congestive heart failure chronicity: unspecified congestive heart failure chronicity Qualified Code(s): I50.40 - Unspecified combined systolic (congestive) and diastolic ( congestive) heart failure (4) Demand ischemia Code(s): I24.8 - OTHER FORMS OF ACUTE ISCHEMIC HEART DISEASE Status: Acute (5) Diabetes Code(s): E11.9 - TYPE 2 DIABETES MELLITUS WITHOUT COMPLICATIONS Status: Acute QualifierTitle: Diabetes mellitus type: type 2 Diabetes mellitus complication status: with unspecified complications Diabetes mellitus long term care administrator insulin use: with snf use Qualified Code(s): E11.8 - Type 2 diabetes mellitus with unspecified complications; Z79.4 - long term care administrator (current) use of insulin; Z79.4 - long term care administrator (current) use of insulin; Z79.4 - penitentiary ( current) use of insulin; Z79.4 - long term care administrator (current) use of insulin (6) HTN (hypertension) Code(s): I10 - ESSENTIAL (PRIMARY) HYPERTENSION Status: Acute QualifierTitle: Hypertension type: essential hypertension Qualified Code( s): I10 - Essential (primary) hypertension (7) Hypokalemia Code(s): E87.6 - HYPOKALEMIA Status: Acute (8) Hyponatremia Code(s): E87.1 - HYPO-OSMOLALITY AND HYPONATREMIA Status: Acute (9) Sepsis secondary to UTI Code(s): A41.9 - SEPSIS, UNSPECIFIED ORGANISM; N39.0 - URINARY TRACT INFECTION, SITE NOT SPECIFIED Status: Acute - Plan Plan: pts blood cx has grown h flu X2 from outside facility, likely covered by cefepime, will continue abx severe hypokalemia, pt asymptomatic, no ekg changes appreciated, replace w 80mg K+, 40mg given this am continue current hf meds, life vest placed per cards recs, op titration of failure meds cards consulted, apprecaite recs uti being treated with cefepime, E coli sensitive to cefepime DM: continue current medications, accuchecks <Moe Shah - Last Filed: 03/16/17 09:08> Attending Addendum - Attending Addendum I personally evaluated the patient and discussed the management with Dr. Shah I agree with the History, Examination, Assessment and Plan documented above with any addition or exceptions noted below- Patient feeling better; denies any SOB/CP. Afebrile VSS. A/P: 1) Sepsis secondary to H. flu- blood cultures from [place] (+) 2/2. Continue Cefepime; await sensitivities to change to po abx. 2 ) Nonischemic cardiomyopathy- appreciate cardiology assistance; stephanieandrzej has lifevest; continue to titrate meds as tolerated. 3) DM- stable; continue to titrate meds. 4) hypokalemia- receiving replacement; continue to monitor. <Roselia Jesus - Last Filed: 03/16/17 14:08>
[2017-03-16] MEDS: Carvedilol 6.25 MG TAB PO SCH ×2 (10:54→20:32)
[2017-03-16] MEDS: Enoxaparin Sodium 40 MG/0.4 ML SYRINGE SC SCH (10:55)
[2017-03-16] MEDS: Insulin Detemir 100 UNITS/ML 30 UNITS in Pre-Filled Syringe 1 EACH SC SCH ×2 (10:56→21:24)
[2017-03-16] MEDS: Lisinopril/Hydrochlorothiazide 20/25 mg Tablet PO SCH (10:57)
[2017-03-16] MEDS: HumaLOG 300 UNITS/3 ML VIAL SC SCH ×3 (10:58→17:28)
--- NOTE | 2017-03-16 16:51 | PRG ---
DATE OF SERVICE: 03/16/2017 She looks better. She is less short of breath. PHYSICAL EXAMINATION: VITAL SIGNS: Blood pressure is 143/82, O2 sat 100%, temperature 98, respirations 18. CHEST: Chest revealed decreased breath sounds without any wheezing. CARDIAC: Normal S1-S2. No gallops. ABDOMEN: Soft, no masses. LABORATORY: White count 15,000, H&H is 12 and 36. Electrolytes are normal. is 2.6. IMPRESSION: 1. Escherichia coli urinary tract infection. 2. Cardiomyopathy. 3. Respiratory failure. PLAN: At this stage I would suggest deescalating antibiotics, put on oral antibiotics. Cardiac care per Cardiology. I will follow.
[2017-03-16] MEDS: Atorvastatin Calcium 40 MG TAB PO SCH (20:33)
[2017-03-17] MEDS: Acetaminophen/Codeine 30-300mg Tablet PO PRN (02:12)
[2017-03-17 05:19] LABS: #Basophils 0.1 thou/uL (0.0-0.2); #Eosinphils 0.2 thou/uL (0.0-0.7); #Lymphocytes 2.2 thou/uL (1.20-3.40); #Monocytes 1.2 thou/uL (0.11-0.59); %Basophils 0.5 % (0.0-1.0); %Eosinophils 0.9 % (0.0-10.0); %Lymphocytes 11.7 % (21.0-51.0); %Monocytes 6.6 % (0.0-10.0); %Neutrophils 80.3 % (42.0-75.0); Hemoglobin 12.1 g/dL (12.0-16.0); Mean Corpuscular HGB CONC 33.2 g/dL (32.0-36.0); Mean Corpuscular Hemoglobin 29.3 pg (27.0-31.0); Mean Corpuscular Volume 88.2 fl (81.0-99.0); Mean Platelet Volume 8.4 fL (7.4-10.4); Platelet Count 263 thou/uL (130-400); RBC Distribution Width 12.6 % (11.5-14.5); Red Blood Cell (RBC) Count 4.15 mill/uL (4.20-5.40); White Blood Cell (WBC) Count 18.7 thou/uL (4.8-10.8)
[2017-03-17 05:50] LABS: Anion Gap 13 mmol/L (10-20); BUN (Urea Nitrogen) 8 mg/dL (9.8-20.1); Calc. Creatinine Clearance 243 mL/min (70-130); Calcium 8.4 mg/dL (7.8-10.44); Carbon Dioxide 31 mmol/L (22-29); Chloride 93 mmol/L (98-107); Estimated GFR-MDRD Greater than 90; Glucose 111 mg/dL (70-105); Sodium 134 mmol/L (136-145)
[2017-03-17 05:57] LABS: Potassium 2.5 mmol/L (3.5-5.1)
[2017-03-17] MEDS ORDERED: Potassium Chloride 20 MEQ TAB PO SCH ×5 (06:30→17:00)
[2017-03-17] MEDS ORDERED: Magnesium Oxide 400 MG TAB PO SCH (06:30)
[2017-03-17] MEDS: Carvedilol 6.25 MG TAB PO SCH (08:30)
[2017-03-17] MEDS: Lisinopril/Hydrochlorothiazide 20/25 mg Tablet PO SCH (08:31)
[2017-03-17] MEDS: Insulin Detemir 100 UNITS/ML 30 UNITS in Pre-Filled Syringe 1 EACH SC SCH (08:33)
[2017-03-17] MEDS: Enoxaparin Sodium 40 MG/0.4 ML SYRINGE SC SCH (08:33)
[2017-03-17] MEDS: HumaLOG 300 UNITS/3 ML VIAL SC SCH ×3 (08:34→18:45)
--- NOTE | 2017-03-17 09:32 | PDOC.FM ---
- Subjective Subjective: Pt reports she is feeling well, only complaint is left ear fullness. Will attempt washout today. Otherwise no cp, sob, nvdc, fever, chills, increased swelling or palpitations. She wishes to go home, however has repeatedly low potassium, will replace and redraw this afternoon. May require scheduled potassium, discussed with pt who is agreeable. - Objective Vital Signs & Weight: Vital Signs (12 hours) Temp Pulse Resp BP BP Pulse Ox 03/17/17 08:31 84 03/17/17 08:25 98.1 F 84 20 143/79 H 99 03/17/17 04:00 98.1 F 80 18 129/61 93 L 03/17/17 00:00 98.1 F 80 18 128/56 L 93 L Weight Weight 118.705 kg I&O: 03/16/17 03/17/17 03/18/17 06:59 06:59 06:59 Intake Total 1130 830 Output Total 1900 1924 Balance -770 -3420 Result Diagrams: 03/17/17 04:47 03/17/17 04:47 <Moe Shah - Last Filed: 03/17/17 09:30> - Objective Vital Signs & Weight: Vital Signs (12 hours) Temp Pulse Resp BP BP Pulse Ox 03/17/17 11:12 99.2 F 85 18 139/83 99 03/17/17 08:31 84 03/17/17 08:25 98.1 F 84 20 143/79 H 99 03/17/17 04:00 98.1 F 80 18 129/61 93 L 03/17/17 00:00 98.1 F 80 18 128/56 L 93 L Weight Weight 118.705 kg I&O: 03/16/17 03/17/17 03/18/17 06:59 06:59 06:59 Intake Total 1130 830 Output Total 1900 1924 Balance -770 -9015 Result Diagrams: 03/17/17 04:47 03/17/17 04:47 <Roselia Jesus - Last Filed: 03/17/17 11:45> Phys Exam - Physical Examination Constitutional: NAD HEENT: PERRLA, moist MMs, sclera anicteric Neck: no nodes, no JVD Respiratory: no wheezing, no rales, no rhonchi, clear to auscultation bilateral Cardiovascular: RRR, no significant murmur, no rub Gastrointestinal: soft, non-tender, no distention, positive bowel sounds Musculoskeletal: pulses present, edema present trace Neurological: non-focal, moves all 4 limbs Psychiatric: normal affect <Moe Shah - Last Filed: 03/17/17 09:30> Dx/Plan (1) Otitis Code(s): H66.90 - OTITIS MEDIA, UNSPECIFIED, UNSPECIFIED EAR Status: Acute QualifierTitle: Laterality: right Qualified Code(s): H66.91 - Otitis media, unspecified, right ear Plan: on levaquin, continue 5 day course (2) Bacteremia due to Gram-negative bacteria Code(s): R78.81 - BACTEREMIA Status: Acute Plan: 2/2 e coli and h flu, continue levaquin and complete 5 day course, pt afebrile (3) CHF (congestive heart failure) Code(s): I50.9 - HEART FAILURE, UNSPECIFIED Status: Acute QualifierTitle: Congestive heart failure type: combined Congestive heart failure chronicity: unspecified congestive heart failure chronicity Qualified Code(s): I50.40 - Unspecified combined systolic (congestive) and diastolic ( congestive) heart failure Plan: cards consulted, appreciate recs life vest in place (4) Demand ischemia Code(s): I24.8 - OTHER FORMS OF ACUTE ISCHEMIC HEART DISEASE Status: Acute (5) Diabetes Code(s): E11.9 - TYPE 2 DIABETES MELLITUS WITHOUT COMPLICATIONS Status: Acute QualifierTitle: Diabetes mellitus type: type 2 Diabetes mellitus complication status: with unspecified complications Diabetes mellitus terminal operator insulin use: with alf use Qualified Code(s): E11.8 - Type 2 diabetes mellitus with unspecified complications; Z79.4 - terminal operator (current) use of insulin; Z79.4 - terminal operator (current) use of insulin; Z79.4 - terminal operator ( current) use of insulin; Z79.4 - terminal operator (current) use of insulin (6) HTN (hypertension) Code(s): I10 - ESSENTIAL (PRIMARY) HYPERTENSION Status: Acute QualifierTitle: Hypertension type: essential hypertension Qualified Code( s): I10 - Essential (primary) hypertension (7) Hypokalemia Code(s): E87.6 - HYPOKALEMIA Status: Acute (8) Hyponatremia Code(s): E87.1 - HYPO-OSMOLALITY AND HYPONATREMIA Status: Acute (9) Sepsis secondary to UTI Code(s): A41.9 - SEPSIS, UNSPECIFIED ORGANISM; N39.0 - URINARY TRACT INFECTION, SITE NOT SPECIFIED Status: Resolved - Plan Plan: continue htn and dm current medications, well controlled replace potassium and recheck afternoon BMP, replace mag <Moe Shah - Last Filed: 03/17/17 09:30> Attending Addendum - Attending Addendum I personally evaluated the patient and discussed the management with Dr. Shah I agree with the History, Examination, Assessment and Plan documented above with any addition or exceptions noted below- Patient sitting up in chair. Denies SOB, cough. Afebrile VSS. A/P: 1) Sepsis secondary to H. flu-change to po antibiotics; will need 2 weeks of abx due to bacteremia. 2) Newly diagnosed combined CHF- on carvedilol and NITESH; continue lifevest and follow-up with cardiology as outpatient, 3) Probable ELISEO- will need follow-up with pulmonary and outpatient sleep study. 4) Hypokalemia- continue replacement; if improved plan to d/c home later today. <Roselia Jesus - Last Filed: 03/17/17 11:45>
[2017-03-17] MEDS ORDERED: Magnesium Chloride 64 MG TAB PO SCH (10:30)
[2017-03-17] MEDS: Acetaminophen 325 MG TAB PO PRN (11:48)
--- NOTE | 2017-03-17 12:02 | PRG ---
DATE OF SERVICE: 03/17/2017 This morning, she is better, less short of breath. She is going to be discharged home with a LifeVes t. PHYSICAL EXAMINATION: VITAL SIGNS: Blood pressure 140/79, sats 99% on room air, temperature is 98. CHEST: Decreased breath sounds, no wheezing. CARDIAC: Normal S1-S2. No gallops. ABDOMEN: Soft. No masses. LABORATORY: White count 8000, H&H 12 and 36, platelet count is normal. Electrolytes normal, i s 2.4. IMPRESSION: 1. Congestive heart failure. 2. Morbid obesity. 3. Sleep apnea. 4. Urinary tract infection. PLAN: From a pulmonary standpoint of view discharge home on antibiotics for a total of 10 days. Car diac follow up. She needs an outpatient sleep study. I will see her in the office as needed.
--- NOTE | 2017-03-17 12:09 | PRG ---
DATE OF SERVICE: 03/17/2017 Ms. Altman is doing well. She has mild shortness of breath, but is improving slowly. She is current ly on congestive heart failure medications and a LifeVest. PHYSICAL EXAMINATION: VITAL SIGNS: Blood pressure 139/82, pulse 80, temperature 99.2. LUNGS: Clear to auscultation. HEART: Regular rate and rhythm. ABDOMEN: Soft, nontender, nondistended. EXTREMITIES: No edema. IMPRESSION: 1. Nonischemic cardiomyopathy. 2. Influenza. RECOMMENDATIONS: Continue Coreg, ARB and atorvastatin. From my standpoint if she is to stay for fur ther therapy from a lung standpoint, it would be okay to discontinue tele and transfer to medical. T he plan is to follow up with Ms. Altman as an outpatient.
[2017-03-17 15:31] LABS: Anion Gap 13 mmol/L (10-20); BUN (Urea Nitrogen) 8 mg/dL (9.8-20.1); Calc. Creatinine Clearance 217 mL/min (70-130); Calcium 8.6 mg/dL (7.8-10.44); Carbon Dioxide 32 mmol/L (22-29); Chloride 92 mmol/L (98-107); Estimated GFR-MDRD Greater than 90; Glucose 163 mg/dL (70-105); Potassium 3.1 mmol/L (3.5-5.1); Sodium 134 mmol/L (136-145)
[2017-03-17 17:43] VITALS: BP 135/85; TEMP 97.7
--- NOTE | 2017-03-18 14:39 | DIS-2 ---
DATE OF ADMISSION: 03/13/2017 DATE OF DISCHARGE: 03/17/2017 LOCATION: [place], [place]. ADMITTING ATTENDING: Ketan Etienne MD DISCHARGE ATTENDING: Roselia Jesus M.D. RESIDENT PHYSICIAN: Moe Shah DO CONSULTATIONS: 1. Cardiology, Dr. Mateo Dickerson. 2. Pulmonology, Dr. Paras Burton. PROCEDURES: 1. An echocardiogram done on 03/12/2017 showed an ejection fraction of 30-35% and flow reversal sugg estive of diastolic dysfunction. Mild mitral regurgitation was present. Mild tricuspid regurgitatio n was present. 2. Cardiac catheterization done on 03/12/2017 showed insignificant coronary artery disease. Recomme nded medical management and aggressive risk factor management. 3. Chest x-ray done on 03/13/2017 showed no acute findings. PRIMARY DIAGNOSIS: Non-ST elevation myocardial infarction. SECONDARY DIAGNOSES: 1. Bacteremia due to Haemophilus influenzae. 2. Influenza. 3. Hypertension. 4. Hyperlipidemia. 5. Diabetes. 6. Otitis. DISCHARGE MEDICATIONS: 1. Aspirin 81 mg daily. 2. Atorvastatin 40 mg p.o. at bedtime. 3. Coreg 12.5 mg p.o. b.i.d. 4. Cyclobenzaprine 10 mg 1 tab p.o. q.8 hours. 5. Glimepiride 1 tab p.o. b.i.d. 4 mg tab. 6. Ibuprofen 800 mg p.o. t.i.d. 7. NovoLog 70/30, 18 units subcu b.i.d. with meals. 8. Lantus 80 units subcu b.i.d. 9. Levaquin 500 mg p.o. daily. 10. Lisinopril/hydrochlorothiazide 20/25 mg p.o. daily. 11. Metformin 500 mg p.o. b.i.d. 12. Potassium chloride 10 mEq p.o. b.i.d. 13. Tramadol 50 mg p.o. q.i.d. 14. Ambien 1 tab p.o. at bedtime. DISCONTINUED MEDICATIONS: None. HISTORY OF PRESENT ILLNESS/HOSPITAL COURSE: The patient is a 56-year-old female who came in with a c hief complaint of viral URI type symptoms in addition to chest pain. On presentation in the ER, the patient's initial troponin was found to be 0.572 but subsequently, down trended to 0.393. The patien t was taken to the [facility] and found to have insignificant coronary artery disease with recommended aggressive medical management and risk factor reduction. Additionally, she had an echocardiogram at that time, which showed an ejection fraction of 35%. Of note, on admission, the patient was found to be flu A positive and treated with a full course of Tamiflu. Some records were obtained from the [facility] ER where she initially presented and she was found to have positive blood cultures x2 from the outside ER, which subsequently grew H. flu. The patient was treated with a 5-day course of Levaquin in addition to prior day's treatment of vancomycin, Zosyn, and Rocephin. Of note, aside from the vir al URI-type symptoms, the only other complaint the patient offered was right ear fullness with some m inor pain and she denied any mastoid tenderness on exam. No other likely source was found as chest x -ray was negative. Overall, the patient had an uncomplicated hospital course, recovered well with ap propriate treatment and was discharged to home with appropriate followup recommended. DISCHARGE INSTRUCTIONS: 1. Location: Home. 2. Diet: Heart healthy, consistent carbohydrates, fluid restriction less than 2 liters, and salt re striction less than 2 grams. 4. Activity: Ad pawel. 5. Followup: Follow up with Dr. Burton with Pulmonology in 2-3 weeks, with the primary care provider, Dr. Vivien Jones, in 7 days, and Dr. Mateo Dickerson in 2-3 weeks.
--- NOTE | 2017-04-09 18:51 | EKG ---
Test Reason : STAT Blood Pressure : / mmHG Vent. Rate : 121 BPM Atrial Rate : 121 BPM P-R Int : 144 ms QRS Dur : 144 ms QT Int : 352 ms P-R-T Axes : 056 -37 053 degrees QTc Int : 499 ms Sinus tachycardia Left axis deviation Non-specific intra-ventricular conduction block Anterolateral infarct , age undetermined Abnormal ECG When compared with ECG of 22-FEB-2016 09:56, Vent. rate has increased BY 43 BPM Non-specific intra-ventricular conduction block has replaced Left bundle branch block Anterior infarct is now Present Anterolateral infarct is now Present Confirmed by DR. Ad ESCOBEDO ([id number]) on 04/09/2017 6:51:22 PM Referred By: Confirmed By:DR. Ad ESCOBEDO
--- NOTE | 2017-04-09 19:00 | EKG ---
Test Reason : STAT Blood Pressure : / mmHG Vent. Rate : 121 BPM Atrial Rate : 241 BPM P-R Int : 000 ms QRS Dur : 150 ms QT Int : 348 ms P-R-T Axes : 000 -60 066 degrees QTc Int : 494 ms Atrial flutter with variable A-V block with premature ventricular or aberrantly conducted complexes Left bundle branch block Abnormal ECG When compared with ECG of 13-MAR-2017 00:42, (Unconfirmed) Atrial flutter has replaced Sinus rhythm Left bundle branch block has replaced Non-specific intra-ventricular conduction block Criteria for Anterior infarct are no longer Present Criteria for Anterolateral infarct are no longer Present Confirmed by DR. Ad ESCOBEDO ([id number] on 04/09/2017 7:00:09 PM Referred By: WM Confirmed By:DR. Ad ESCOBEDO
== END 2017-03-17 19:13 | disposition home or self-care (01) | DRG 871 ==
LOC: ERS 16:16 → 2SE 17:20 → IMCU/EMU 03-13 00:54 → 2NO 03-15 09:42
PROVIDERS: ADMIT Student in an Organized Health Care Education/Training Program; ATTEND Student in an Organized Health Care Education/Training Program
PROC: 4A023N7 Measurement of Cardiac Sampling and Pressure, Left Heart, Percutaneous Approach (ICD-10-PCS; principal; 2017-03-13)
PROC: B2111ZZ Fluoroscopy of Multiple Coronary Arteries using Low Osmolar Contrast (ICD-10-PCS; 2017-03-13)
PROC: B3101ZZ Fluoroscopy of Thoracic Aorta using Low Osmolar Contrast (ICD-10-PCS; 2017-03-13)
PROC: B2151ZZ Fluoroscopy of Left Heart using Low Osmolar Contrast (ICD-10-PCS; 2017-03-13)
DX: A41.50 Gram-negative sepsis, unspecified (principal); I50.41 Acute combined systolic (congestive) and diastolic (congestive) heart failure; J96.01 Acute respiratory failure with hypoxia; I21.A1 Myocardial infarction type 2; E66.01 Morbid (severe) obesity due to excess calories; E11.65 Type 2 diabetes mellitus with hyperglycemia; D69.6 Thrombocytopenia, unspecified; E87.2 Acidosis; E87.1 Hypo-osmolality and hyponatremia; I42.9 Cardiomyopathy, unspecified; Z68.43 Body mass index [BMI] 50.0-59.9, adult; N39.0 Urinary tract infection, site not specified; I24.8 Other forms of acute ischemic heart disease; N30.00 Acute cystitis without hematuria; J11.1 Influenza due to unidentified influenza virus with other respiratory manifestations; B96.20 Unspecified Escherichia coli [E. coli] as the cause of diseases classified elsewhere; E11.9 Type 2 diabetes mellitus without complications; E78.5 Hyperlipidemia, unspecified; I44.7 Left bundle-branch block, unspecified; I25.10 Atherosclerotic heart disease of native coronary artery without angina pectoris; H66.91 Otitis media, unspecified, right ear; E87.6 Hypokalemia; G47.33 Obstructive sleep apnea (adult) (pediatric); R65.20 Severe sepsis without septic shock; Z66 Do not resuscitate
CPT/HCPCS: 36415; 36416; 71045; 80048; 80061; 81001; 82010; 82805; 83036; 83735; 84100; 85025; 87040; 87077; 87086; 87186; 87633; 87899; 93005; 93010; 93306; 93458; 93798; 94760; 96372; 99152; A4216; C1769; G8978-GP-CK; G8979-GP-CK; G8980-GP-CK; G8987-GO-CK; G8988-GO-CI; J0692; J0696; J1644; J1650; J1815; J2250; J2543; J3010; J7050

== ENCOUNTER → 2017-08-11 | Day surgery (SDC) | payer BC ==
[2017-08-10 17:03] VITALS: BMI 45.8
[~2017-08-11] MED LIST: CEFAZOLIN/Water 2 GM/20 ML SYRINGE ONE; Fentanyl 100 MCG/2 ML VIAL ONE; Iopamidol 370 76% 50 ML VIAL FS ONE; Lidocaine 1% (PF) 30 ML VIAL ONE; Lidocaine 1% PF 5 ML VIAL ONE; Midazolam HCl 2 mg/2 ml Vial ONE; PROPOFOL 200 MG/20 ML VIAL ONE; Propofol 500 MG/50 ML VIAL ONE
[2017-08-11 12:36] LABS: #Basophils 0.1 thou/uL (0.0-0.2); #Eosinphils 0.2 thou/uL (0.0-0.7); #Lymphocytes 2.4 thou/uL (1.20-3.40); #Monocytes 0.7 thou/uL (0.11-0.59); #Neutrophils 2.3 thou/uL (1.40-6.50); %Basophils 0.9 % (0.0-1.0); %Eosinophils 4.1 % (0.0-10.0); %Lymphocytes 42.8 % (21.0-51.0); %Monocytes 11.7 % (0.0-10.0); %Neutrophils 40.4 % (42.0-75.0); Hemoglobin 14.7 g/dL (12.0-16.0); Mean Corpuscular HGB CONC 33.5 g/dL (32.0-36.0); Mean Corpuscular Hemoglobin 29.2 pg (27.0-31.0); Mean Corpuscular Volume 87.2 fl (81.0-99.0); Mean Platelet Volume 7.6 fL (7.4-10.4); Platelet Count 222 thou/uL (130-400); RBC Distribution Width 12.2 % (11.5-14.5); Red Blood Cell (RBC) Count 5.04 mill/uL (4.20-5.40); White Blood Cell (WBC) Count 5.6 thou/uL (4.8-10.8)
[2017-08-11 12:43] LABS: Prothrombin Time 13.3 SEC (12.0-14.7)
[2017-08-11 12:58] LABS: Anion Gap 14 mmol/L (10-20); BUN (Urea Nitrogen) 15 mg/dL (9.8-20.1); Calc. Creatinine Clearance 139 mL/min (70-130); Calcium 9.6 mg/dL (7.8-10.44); Carbon Dioxide 23 mmol/L (22-29); Chloride 102 mmol/L (98-107); Estimated GFR-MDRD 78; Glucose 254 mg/dL (70-105); Potassium 3.6 mmol/L (3.5-5.1); Sodium 135 mmol/L (136-145)
--- NOTE | 2017-08-11 16:59 | EKG ---
Test Reason : PREOP Blood Pressure : / mmHG Vent. Rate : 099 BPM Atrial Rate : 099 BPM P-R Int : 174 ms QRS Dur : 154 ms QT Int : 410 ms P-R-T Axes : 072 -09 043 degrees QTc Int : 526 ms Normal sinus rhythm Left bundle branch block Abnormal ECG When compared with ECG of 13-MAR-2017 22:39, (Unconfirmed) Fusion complexes are no longer Present Premature ventricular complexes are no longer Present QRS axis Shifted left Confirmed by MIMI ALLEN ([id number] on 08/11/2017 4:58:40 PM Referred By: DORIAN Confirmed By:MIMI ALLEN
--- NOTE | 2017-08-11 17:48 | RAD ---
PORTABLE CHEST: 08/11/17 HISTORY: Post AICD lead placement. COMPARISON: 03/13/17 FINDINGS/IMPRESSION: AICD leads have been placed through the left subclavian vein. Leads overlie the right ventricle. Lung squires are clear. No pneumothorax. No acute lung process. POS: [facility]
== END ==
LOC: SDC 11:51
PROVIDERS: ATTEND Internal Medicine Cardiovascular Disease
PROC: 02WA3MZ Revision of Cardiac Lead in Heart, Percutaneous Approach (ICD-10-PCS; principal; 2017-08-11)
DX: T82.120A Displacement of cardiac electrode, initial encounter (principal); I25.2 Old myocardial infarction; I25.5 Ischemic cardiomyopathy; I25.10 Atherosclerotic heart disease of native coronary artery without angina pectoris; E78.00 Pure hypercholesterolemia, unspecified; E11.9 Type 2 diabetes mellitus without complications; I50.9 Heart failure, unspecified; E66.01 Morbid (severe) obesity due to excess calories; Z68.42 Body mass index [BMI] 45.0-49.9, adult; Z79.82 Long term (current) use of aspirin; Z79.4 Long term (current) use of insulin; Z79.899 Other long term (current) drug therapy
CPT/HCPCS: 33225; 33244; 36005; 36415; 36416; 71045; 75820; 80048; 85025; 85610; 85730; 93005; 93010; 93640; 93641; 96374; J2001; J2250; J2704; J3010; J3490

== ENCOUNTER 2017-10-24 10:53 | Emergency (ER) | payer BC, MEDICAID ==
--- NOTE | 2017-10-24 13:15 | RAD ---
LEFT SHOUDLER 3 VIEWS: HISTORY: Fall with injury to left shoulder. COMPARISON: Comparison is made to left shoulder films from 04/02/17. FINDINGS: A pacemaker device obscures the scapula. The humeral head appears normally positioned. AC joint is normally aligned. IMPRESSION: No acute fracture or dislocation identified. POS: [facility]
== END 2017-10-24 12:37 | disposition home or self-care (01) ==
LOC: ERS 10:53
DX: S40.012A Contusion of left shoulder, initial encounter (principal); M25.522 Pain in left elbow; R42 Dizziness and giddiness; I25.10 Atherosclerotic heart disease of native coronary artery without angina pectoris; E78.5 Hyperlipidemia, unspecified; E11.40 Type 2 diabetes mellitus with diabetic neuropathy, unspecified; I10 Essential (primary) hypertension; G47.00 Insomnia, unspecified; F32.9 Major depressive disorder, single episode, unspecified; Z79.84 Long term (current) use of oral hypoglycemic drugs; Z79.899 Other long term (current) drug therapy; Z79.4 Long term (current) use of insulin; Z79.82 Long term (current) use of aspirin; W18.30XA Fall on same level, unspecified, initial encounter
CPT/HCPCS: 93005

== ENCOUNTER 2018-04-12 13:20 | Outpatient (CLI) | payer OTHER | END 2018-04-12 13:21 | disposition home or self-care (01) | LOC: BICMAMMO 13:20 | PROVIDERS: ATTEND Nurse Practitioner Family | DX: Z12.31 Encounter for screening mammogram for malignant neoplasm of breast (principal); R92.1 Mammographic calcification found on diagnostic imaging of breast | CPT/HCPCS: 77063; 77067 ==

== ENCOUNTER 2020-09-20 07:51 | Outpatient (CLI) | payer MEDICARE, MEDICAID | END 2020-09-20 07:52 | disposition home or self-care (01) | LOC: BICULT 07:51 | PROVIDERS: ATTEND Family Medicine | DX: R10.11 Right upper quadrant pain (principal); R93.2 Abnormal findings on diagnostic imaging of liver and biliary tract | CPT/HCPCS: 93975 ==

== ENCOUNTER 2020-10-02 10:16 | Outpatient (CLI) | payer MEDICARE, MEDICAID, OTHER | END 2020-10-02 10:17 | disposition home or self-care (01) | LOC: DTY/OP 10:16 | PROVIDERS: ATTEND Family Medicine | DX: E11.9 Type 2 diabetes mellitus without complications (principal); Z71.3 Dietary counseling and surveillance | CPT/HCPCS: 97802 ==

== ENCOUNTER 2020-10-15 07:51 | Outpatient (CLI) | payer MEDICARE, MEDICAID, OTHER | END 2020-10-15 07:52 | disposition home or self-care (01) | LOC: NM 07:51 | PROVIDERS: ATTEND Family Medicine | DX: K80.20 Calculus of gallbladder without cholecystitis without obstruction (principal); R10.11 Right upper quadrant pain | CPT/HCPCS: 78227; A9537 ==

== ENCOUNTER 2021-01-11 06:48 | Day surgery (SDC) | payer MEDICARE, MEDICAID ==
[2021-01-10 10:48] VITALS: BMI 39.6
[2021-01-11] MEDS ORDERED: PROPOFOL 200 MG/20 ML VIAL ONE (09:06)
[2021-01-11] MEDS ORDERED: Lidocaine 1% PF 5 ML VIAL ONE (09:06)
== END 2021-01-11 10:18 | disposition home or self-care (01) ==
LOC: SDC 06:48
PROVIDERS: ATTEND Internal Medicine Gastroenterology
PROC: 0DB58ZX Excision of Esophagus, Via Natural or Artificial Opening Endoscopic, Diagnostic (ICD-10-PCS; principal; 2021-01-11)
DX: K29.50 Unspecified chronic gastritis without bleeding (principal); B96.81 Helicobacter pylori [H. pylori] as the cause of diseases classified elsewhere; K25.9 Gastric ulcer, unspecified as acute or chronic, without hemorrhage or perforation; K44.9 Diaphragmatic hernia without obstruction or gangrene; E11.9 Type 2 diabetes mellitus without complications; E78.5 Hyperlipidemia, unspecified; M79.7 Fibromyalgia; G43.909 Migraine, unspecified, not intractable, without status migrainosus; E66.9 Obesity, unspecified; Z68.39 Body mass index [BMI] 39.0-39.9, adult; Z79.4 Long term (current) use of insulin; Z79.82 Long term (current) use of aspirin; Z79.84 Long term (current) use of oral hypoglycemic drugs; Z79.899 Other long term (current) drug therapy
CPT/HCPCS: 36416; 88305; 88312; J2704

== ENCOUNTER 2021-04-01 12:57 | Outpatient (CLI) | payer MEDICARE, MEDICAID | END 2021-04-01 12:58 | disposition home or self-care (01) | LOC: BICMAMMO 12:57 | PROVIDERS: ATTEND Family Medicine | DX: Z12.31 Encounter for screening mammogram for malignant neoplasm of breast (principal) | CPT/HCPCS: 77063; 77067 ==

== ENCOUNTER 2021-04-17 07:41 | Outpatient (CLI) | payer MEDICARE, MEDICAID | END 2021-04-17 07:42 | disposition home or self-care (01) | LOC: ULT 07:41 | PROVIDERS: ATTEND Internal Medicine Gastroenterology | DX: R10.9 Unspecified abdominal pain (principal); K80.20 Calculus of gallbladder without cholecystitis without obstruction; K76.0 Fatty (change of) liver, not elsewhere classified | CPT/HCPCS: 76700 ==

== ENCOUNTER 2021-07-08 07:34 | Outpatient (CLI) | payer MEDICARE, MEDICAID | END 2021-07-08 07:35 | disposition home or self-care (01) | LOC: ULT 07:34 | PROVIDERS: ATTEND Family Medicine | DX: I10 Essential (primary) hypertension (principal); R09.89 Other specified symptoms and signs involving the circulatory and respiratory systems; E11.65 Type 2 diabetes mellitus with hyperglycemia; Z79.4 Long term (current) use of insulin | CPT/HCPCS: 93922; 93923 ==

== ENCOUNTER 2023-07-19 16:00 | Outpatient (CLI) | payer OTHER | END 2023-07-19 16:01 | disposition home or self-care (01) | LOC: SLEEPLAB 16:00 | PROVIDERS: ATTEND Family Medicine | DX: G47.33 Obstructive sleep apnea (adult) (pediatric) (principal); R53.83 Other fatigue; E11.9 Type 2 diabetes mellitus without complications; E66.9 Obesity, unspecified; I10 Essential (primary) hypertension | CPT/HCPCS: 95810 ==